=== PATIENT | female | born 1985 | race African-American/Black ===

== ENCOUNTER 2016-05-07 20:02 | Emergency (ER) | payer OTHER ==
[~2016-05-07] VITALS: Ht 162.6 cm; Wt 71.0 kg
[~2016-05-07 20:02] MED LIST: CEPHALEXIN500 MG PO; NO HOME MEDS; NO MEDS; ROCEPHIN 2250 MG/VIA IM; TYLENOL 500MG TAB PO; ULTRAM50 M1 OR; ULTRAM50 M1 PO; ZITHROMAX500 MG PO
[2016-05-07 20:44] LABS: HEMATOCRIT 33.5 % (37.0-47.0); HEMOGLOBIN 11.1 g/dl (12.0-16.0); IMMATURE GRANULOCYTES 0.3 % (0.0-1.0); MEAN CELL VOLUME 88.9 fL CALC (80.0-100.0); MEAN CORPUSCULAR HGB 29.4 pG CALC (26.0-32.0); MEAN CORPUSCULAR HGB CONC 33.1 g/L CALC (32.0-36.0); NEUT# 4.53 thou/uL (2.00-7.15); RED BLOOD COUNT 3.77 mill/uL (4.20-5.60); RED CELL DISTRI WIDTH 13.2 % (11.5-15.5)
[2016-05-07 21:01] LABS: ALKALINE PHOSPHATASE 83 u/l (38-126); ANION GAP 16 (6-22 (CALC)); BILIRUBIN, TOTAL 0.6 mg/dL (0.0-1.4); BUN 7 mg/dL (7-17); BUN/CREATININE RATIO 13 (12-20 (CALC)); CARBON DIOXIDE 20 mmol/l (22-30); CHLORIDE 106 mmol/l (95-108); CREATININE 0.5 mg/dL (0.5-1.0); GFR > 60 ML/MIN (>=60 (CALC)); GFR FOR AFR.AMER. > 60 ML/MIN (>=60 (CALC)); GLUCOSE 102 mg/dL (65-105); POTASSIUM 3.9 mmol/l (3.5-5.1); SGOT/AST 16 u/l (14-36); SGPT/ALT 20 u/l (9-52); SODIUM 138 mmol/l (137-146); TOTAL PROTEIN 7.5 g/dL (6.3-8.2)
[2016-05-07 21:23] LABS: BETA-HCG, QUANT(RESULT NUMBER) 30530 mIU/mL
[2016-05-07 21:30] LABS: URINE BILIRUBIN - DIPSTICK NEGATIVE (NEGATIVE); URINE BLOOD DIPSTICK LARGE (NEGATIVE); URINE GLUCOSE - DIPSTICK NEGATIVE (NEGATIVE); URINE KETONE NEGATIVE (NEGATIVE); URINE LEUK ESTERASE NEGATIVE (NEGATIVE); URINE NITRITE - DIPSTICK NEGATIVE (Negative); URINE PROTEIN - DIPSTICK 30 mg/dL (NEG-TRACE)
[2016-05-07 21:31] LABS: URINE CLARITY CLOUDY; URINE COLOR DK. YELLOW; URINE EPITHELIAL CELLS FEW EPI/hpf (0-FEW); URINE RBC 50-100 RBC/hpf (0-5)
[2016-05-08 00:25] VITALS: BP 101/57
== END 2016-05-08 00:05 | disposition home or self-care (01) | DRG 778 ==
LOC: ED 20:02
PROVIDERS: Emergency Medicine
DX: O20.0 Threatened abortion (principal); Z3A.01 Less than 8 weeks gestation of pregnancy

== ENCOUNTER 2018-01-22 14:16 | Emergency (ER) | payer MEDICAID ==
[~2018-01-22] VITALS: Ht 165.1 cm; Wt 64.0 kg
[~2018-01-22 14:16] MED LIST changes: +FERR SULFATE325 MG PO; +PRENA1 CHEW 1.41 CHW
[2018-01-22 15:01] LABS: URINE BILIRUBIN - DIPSTICK NEGATIVE (NEGATIVE); URINE BLOOD DIPSTICK NEGATIVE (NEGATIVE); URINE COLOR YELLOW; URINE GLUCOSE - DIPSTICK NEGATIVE (NEGATIVE); URINE KETONE NEGATIVE (NEGATIVE); URINE LEUK ESTERASE NEGATIVE (NEGATIVE); URINE NITRITE - DIPSTICK NEGATIVE (Negative); URINE PROTEIN - DIPSTICK NEGATIVE (NEG-TRACE); URINE SPECIFIC GRAVITY 1.015
[2018-01-22 15:06] LABS: URINE CLARITY CLEAR
[2018-01-22 15:27] VITALS: BP 124/81
== END 2018-01-22 15:27 | disposition home or self-care (01) ==
LOC: ED 14:16
PROVIDERS: Emergency Medicine
DX: R10.11 Right upper quadrant pain (principal); R10.12 Left upper quadrant pain

== ENCOUNTER 2018-09-03 20:03 | Emergency (ER) | payer MEDICAID ==
[~2018-09-03] VITALS: Ht 165.1 cm; Wt 82.4 kg
[2018-09-03 20:23] LABS: URINE BILIRUBIN - DIPSTICK NEGATIVE (NEGATIVE); URINE BLOOD DIPSTICK NEGATIVE (NEGATIVE); URINE COLOR YELLOW; URINE GLUCOSE - DIPSTICK NEGATIVE (NEGATIVE); URINE KETONE NEGATIVE (NEGATIVE); URINE LEUK ESTERASE TRACE (NEGATIVE); URINE NITRITE - DIPSTICK NEGATIVE (Negative); URINE PH 5.5 (4.5-8.0); URINE PROTEIN - DIPSTICK TRACE mg/dL (NEG-TRACE); URINE SPECIFIC GRAVITY >=1.030; URINE UROBILINOGEN - DIPSTICK 0.2 E.U./dL (0.2)
[2018-09-03] MEDS ORDERED: CLEOCIN300 MG PO (20:43)
[2018-09-03 20:48] VITALS: BP 114/63
== END 2018-09-03 20:55 | disposition home or self-care (01) ==
LOC: ED 20:03
DX: O23.599 Infection of other part of genital tract in pregnancy, unspecified trimester (principal); Z3A.00 Weeks of gestation of pregnancy not specified; R10.30 Lower abdominal pain, unspecified; R89.8 Other abnormal findings in specimens from other organs, systems and tissues

== ENCOUNTER 2018-11-11 22:22 | Emergency (ER) | payer MEDICAID ==
[~2018-11-11] VITALS: Ht 162.6 cm; Wt 83.0 kg
[~2018-11-11 22:22] MED LIST changes: +CLEOCIN300 MG PO
[2018-11-12 00:50] LABS: HEMATOCRIT 32.7 % (37.0-47.0); HEMOGLOBIN 10.6 g/dl (12.0-16.0); IMMATURE GRANULOCYTES 0.3 % (0.0-5.0); MEAN CELL VOLUME 88.4 fL CALC (80.0-100.0); MEAN CORPUSCULAR HGB 28.6 pG CALC (26.0-32.0); MEAN CORPUSCULAR HGB CONC 32.4 g/L CALC (32.0-36.0); NEUT# 4.05 thou/uL (2.00-7.15); RED BLOOD COUNT 3.7 mill/uL (4.20-5.60)
[2018-11-12 01:00] LABS: URINE BILIRUBIN - DIPSTICK NEGATIVE (NEGATIVE); URINE BLOOD DIPSTICK LARGE (NEGATIVE); URINE COLOR YELLOW; URINE GLUCOSE - DIPSTICK NEGATIVE (NEGATIVE); URINE KETONE NEGATIVE (NEGATIVE); URINE LEUK ESTERASE MODERATE (NEGATIVE); URINE NITRITE - DIPSTICK NEGATIVE (Negative); URINE PH 5.5 (4.5-8.0); URINE PROTEIN - DIPSTICK NEGATIVE (NEG-TRACE); URINE SPECIFIC GRAVITY 1.015; URINE UROBILINOGEN - DIPSTICK 0.2 E.U./dL (0.2)
[2018-11-12 01:02] LABS: URINE BACTERIA MODERATE hpf; URINE RBC TNTC RBC/hpf (0-5); URINE SQUAMOUS EPITHELIAL CELL FEW EPI/hpf (0-FEW); URINE TRICHOMONAS MODERATE hpf; URINE WBC TNTC WBC/hpf (0-5)
[2018-11-12 01:12] LABS: ANION GAP 16 (6-22 (CALC)); BUN 7 mg/dL (7-17); BUN/CREATININE RATIO 17 (12-20 (CALC)); CARBON DIOXIDE 21 mmol/l (22-30); CHLORIDE 105 mmol/l (95-108); CREATININE 0.4 mg/dL (0.5-1.0); GFR > 60 ML/MIN (>=60 (CALC)); GFR FOR AFR.AMER. > 60 ML/MIN (>=60 (CALC)); POTASSIUM 3.7 mmol/l (3.5-5.1); SODIUM 139 mmol/l (137-146)
[2018-11-12] MEDS ORDERED: MACRODANTIN100 MG PO (01:40)
[2018-11-12] MEDS ORDERED: METRONIDAZOL500 MG PO (01:40)
[2018-11-12 01:55] VITALS: BP 119/65
[2018-11-12 01:57] LABS: BETA-HCG, QUANT(RESULT NUMBER) 34918 mIU/mL
== END 2018-11-12 01:55 | disposition home or self-care (01) ==
LOC: ED 22:22
PROVIDERS: Family Medicine
DX: O23.42 Unspecified infection of urinary tract in pregnancy, second trimester (principal); O98.312 Other infections with a predominantly sexual mode of transmission complicating pregnancy, second trimester; A59.01 Trichomonal vulvovaginitis; Z3A.16 16 weeks gestation of pregnancy

== ENCOUNTER 2018-12-04 20:08 | Emergency (ER) | payer MEDICAID ==
[~2018-12-04] VITALS: Ht 162.6 cm; Wt 74.5 kg
[~2018-12-04 20:08] MED LIST changes: +MACRODANTIN100 MG PO; +METRONIDAZOL500 MG PO
[2018-12-04 20:51] LABS: HEMOGLOBIN 10.6 g/dl (12.0-16.0); IMMATURE GRANULOCYTES 0.3 % (0.0-5.0); MEAN CELL VOLUME 88.2 fL CALC (80.0-100.0); MEAN CORPUSCULAR HGB 29.2 pG CALC (26.0-32.0); MEAN CORPUSCULAR HGB CONC 33.1 g/L CALC (32.0-36.0); NEUT# 8.14 thou/uL (2.00-7.15); RED BLOOD COUNT 3.63 mill/uL (4.20-5.60); RED CELL DISTRI WIDTH 13.6 % (11.5-15.5); URINE BILIRUBIN - DIPSTICK NEGATIVE (NEGATIVE); URINE BLOOD DIPSTICK LARGE (NEGATIVE); URINE COLOR YELLOW; URINE GLUCOSE - DIPSTICK NEGATIVE (NEGATIVE); URINE KETONE TRACE mg/dL (NEGATIVE); URINE PH 8.5 (4.5-8.0); URINE PROTEIN - DIPSTICK >=300 mg/dL (NEG-TRACE); URINE SPECIFIC GRAVITY 1.015; URINE UROBILINOGEN - DIPSTICK 0.2 E.U./dL (0.2)
[2018-12-04 20:54] LABS: URINE LEUK ESTERASE LARGE (NEGATIVE); URINE NITRITE - DIPSTICK POSITIVE (Negative)
[2018-12-04 20:57] LABS: URINE BACTERIA MANY hpf; URINE RBC TNTC RBC/hpf (0-5); URINE SQUAMOUS EPITHELIAL CELL FEW EPI/hpf (0-FEW); URINE WBC TNTC WBC/hpf (0-5)
[2018-12-04 21:13] LABS: ALBUMIN 3.8 g/dL (3.2-5.0); ALKALINE PHOSPHATASE 80 u/l (38-126); AMYLASE 93 u/l (30-110); ANION GAP 14 (6-22 (CALC)); BILIRUBIN, TOTAL 0.3 mg/dL (0.0-1.4); BUN 6 mg/dL (7-17); BUN/CREATININE RATIO 11 (12-20 (CALC)); CARBON DIOXIDE 22 mmol/l (22-30); CHLORIDE 106 mmol/l (95-108); CREATININE 0.5 mg/dL (0.5-1.0); GFR > 60 ML/MIN (>=60 (CALC)); GFR FOR AFR.AMER. > 60 ML/MIN (>=60 (CALC)); LIPASE 32 u/l (23-300); POTASSIUM 3.8 mmol/l (3.5-5.1); SGOT/AST 15 u/l (14-36); SODIUM 138 mmol/l (137-146); TOTAL PROTEIN 7.3 g/dL (6.3-8.2)
[2018-12-04 21:58] LABS: BETA-HCG, QUANT(RESULT NUMBER) 18258 mIU/mL
[2018-12-04] MEDS ORDERED: AMOX/K CLAV875 M1 PO (22:43)
[2018-12-04 23:03] VITALS: BP 108/71
== END 2018-12-04 23:00 | disposition home or self-care (01) ==
LOC: ED 20:08
PROVIDERS: Emergency Medicine
DX: O23.42 Unspecified infection of urinary tract in pregnancy, second trimester (principal); B96.4 Proteus (mirabilis) (morganii) as the cause of diseases classified elsewhere; Z3A.19 19 weeks gestation of pregnancy

== ENCOUNTER 2023-03-11 20:00 | Emergency (ER) | payer MEDICAID ==
[~2023-03-11] VITALS: Ht 162.6 cm; Wt 81.6 kg
[~2023-03-11 20:00] MED LIST changes: +AMOX/K CLAV875 M1 PO
[2023-03-11 21:32] VITALS: BP 110/83
[2023-03-11 23:10] VITALS: BP 110/83
[2023-03-11] MEDS ORDERED: KEFLEX500 MG PO ×2 (23:11→23:29)
== END 2023-03-11 23:34 | disposition home or self-care (01) ==
LOC: ED 20:00
DX: N61.0 Mastitis without abscess (principal); N63.20 Unspecified lump in the left breast, unspecified quadrant; Z80.3 Family history of malignant neoplasm of breast